=== PATIENT | male | born 1990 | race Caucasian/White ===

== ENCOUNTER 2020-05-14 19:39 | Emergency (ER) | payer SELFPAY ==
[~2020-05-14] VITALS: Ht 175.3 cm; Wt 111.6 kg
[2020-05-14 20:12] VITALS: BP 143/83
== END 2020-05-14 20:45 ==
LOC: ER 19:40
DX: R03.0 Elevated blood-pressure reading, without diagnosis of hypertension (principal); Z88.8 Allergy status to other drugs, medicaments and biological substances

== ENCOUNTER 2020-05-15 15:00 | Inpatient (IN) | payer SELFPAY ==
[~2020-05-15] VITALS: Ht 175.3 cm; Wt 99.9 kg
[2020-05-15 15:59] LABS: Basophils # (auto) 0.1 10 ^3/uL (0-0.2); Basophils % (auto) 0.7 % (0.0-2.0); Eosinophils # (auto) 0.2 10 ^3/uL (0-0.8); Lymphocytes # (auto) 1.2 10 ^3/uL (0.4-5.4); Monocytes # (auto) 1.4 10 ^3/uL (0-1.3); Neutrophils % (auto) 71.3 % (37.0-80.0)
[2020-05-15 16:01] LABS: Eosinophils % (auto) 1.7 % (0.0-7.0); Hematocrit 34.9 % (41.0-53.0); Hemoglobin 10.9 g/dL (13.5-17.5); Lymphocytes % (auto) 12.2 % (10.0-50.0); Mean Corpuscular Hemoglobin 21.7 pg (28.0-32.0); Mean Corpuscular Hgb Conc. 31.3 g/dL (32.0-36.0); Mean Corpuscular Volume 69.4 fL (80.0-100.0); Monocytes % (auto) 14.1 % (0.0-12.0); Neutrophils # (auto) 7.1 10 ^3/uL (1.6-8.6); Nucleated Red Blood Cells % 0.3 %; Platelet Count (auto) 503 10^3/uL (140-450); Red Blood Cells 5.03 10^6/uL (4.5-5.90); Red Cell Distribution Width 16.1 % (11.8-14.3)
[2020-05-15 16:02] LABS: Urine Bacteria NONE SEEN /hpf (None Seen); Urine Blood Negative /uL (Negative); Urine Mucus FEW (None Seen); Urine Specific Gravity 1.009 (1.001-1.035); Urine WBC 2 /hpf (0 - 3)
[2020-05-15 16:17] LABS: Albumin 2.4 g/dL (3.4-5.0); BUN/Creatinine Ratio 4.6; Calcium 8.7 mg/dL (8.5-10.1); Potassium 3.4 mmol/L (3.5-5.1)
[2020-05-15 16:20] LABS: Bilirubin, Total 0.2 mg/dL (0.2-1.0); Total Protein 7.9 g/dL (6.4-8.2)
[2020-05-15] MEDS ORDERED: SODIUM CHLORIDE 0.9% 1,000 ML IVB ONE (17:05)
[2020-05-15] MEDS ORDERED: METOCLOPRAMIDE HCL 5MG/ml INJ 2ml VIAL IV ONE (17:15)
[2020-05-15] MEDS ORDERED: methylPREDNISolone SOD SUCC 125 MG/2 ML VL IV ONE (17:15)
[2020-05-15 17:39] LABS: Magnesium 2.2 mg/dL (1.6-2.6)
[2020-05-15] MEDS ORDERED: SODIUM CHLORIDE 0.9% 1,000 ML IV ONE (21:00)
[2020-05-15] MEDS ORDERED: MORPHINE SULFATE 4 MG/ML SYR/VIAL IV ONE (21:00)
[2020-05-15] MEDS: SODIUM CHLORIDE 0.9% 1,000 ML IV SCH (21:06)
[2020-05-15] MEDS ORDERED: ONDANSETRON HCL 4 MG/2 ML VIAL IV PRN (21:15)
[2020-05-15] MEDS ORDERED: DOCUSATE SOD 100 MG CAP PO PRN (21:15)
[2020-05-15] MEDS ORDERED: MORPHINE SULF INJ 2 MG/ML SYRINGE 1ML IV PRN (21:15)
[2020-05-15] MEDS ORDERED: ACETAMINOPHEN 325 MG TAB PO PRN (21:15)
[2020-05-15] MEDS ORDERED: LORazepam 0.5 MG TAB PO PRN (21:15)
[2020-05-15 22:00] VITALS: BP 104/56
--- NOTE | 2020-05-15 22:00 | NUR ---
MS admit from [facility],[place] admitted to tele/MS. Patient oriented to Deana White RN primary RN, unit, room, bed, and unit policies regarding patient care and visiting hours. Patient weighed by bedscale and encouraged to call if they need something. All questions and concerns addressed, patient verbalized understanding. Bed is in lowest locked position with bed rails up x2 and call light is within reach of the patient.
[2020-05-15 22:10] VITALS: BP 104/56
[2020-05-15] MEDS: metroNIDAZOLE 500MG/100ML 100 ML IV SCH (23:38)
[2020-05-16 05:00] VITALS: BP 123/71
[2020-05-16] MEDS: metroNIDAZOLE 500MG/100ML 100 ML IV SCH ×4 (05:37→23:28)
[2020-05-16] MEDS: SODIUM CHLORIDE 0.9% 1,000 ML IV SCH ×2 (05:48→16:54)
[2020-05-16 06:20] LABS: Basophils # (auto) 0 10 ^3/uL (0-0.2); Eosinophils # (auto) 0 10 ^3/uL (0-0.8); Lymphocytes # (auto) 0.5 10 ^3/uL (0.4-5.4); Lymphocytes % (auto) 8.4 % (10.0-50.0); Monocytes # (auto) 0.1 10 ^3/uL (0-1.3); Neutrophils # (auto) 5.4 10 ^3/uL (1.6-8.6)
[2020-05-16 06:24] LABS: Basophils % (auto) 0.3 % (0.0-2.0); Hematocrit 32.3 % (41.0-53.0); Hemoglobin 10.1 g/dL (13.5-17.5); Mean Corpuscular Hemoglobin 21.7 pg (28.0-32.0); Mean Corpuscular Hgb Conc. 31.2 g/dL (32.0-36.0); Mean Corpuscular Volume 69.6 fL (80.0-100.0); Monocytes % (auto) 2.2 % (0.0-12.0); Neutrophils % (auto) 89.1 % (37.0-80.0); Platelet Count (auto) 449 10^3/uL (140-450); Red Blood Cells 4.63 10^6/uL (4.5-5.90); Red Cell Distribution Width 15.8 % (11.8-14.3)
[2020-05-16 06:41] LABS: Potassium 3.8 mmol/L (3.5-5.1)
[2020-05-16 06:58] LABS: BUN/Creatinine Ratio 7.4; Calcium 8.8 mg/dL (8.5-10.1)
--- NOTE | 2020-05-16 07:52 | NUR ---
Opening Note Assumed pt care from NOC RN. Pt is a/ox4 with no s/s of distress or SOB. Pt is currently laying in bed with no complaints at this time. Discussed POC with pt and pending GI consult. Pt is currently NPO. Safety measures maintained with call light within reach, bed in lowest position and side rails up. Will continue to monitor for changes.
[2020-05-16 08:54] VITALS: BP 105/67
[2020-05-16] MEDS: cefTRIAXone 1GM/50ML D5W 50 ML IV SCH (09:12)
--- NOTE | 2020-05-16 11:11 | NUR ---
Dr Bowman at Bedside MD to see pt. Requests stool sample be collected and sent. Will implement and continue to monitor.
--- NOTE | 2020-05-16 12:09 | NUR ---
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
--- NOTE | 2020-05-16 14:23 | NUR ---
Dr Oviedo at Bedside MD to see pt. Requests that we advance to clear liquid diet and see how pt tolerates. Will implement and continue to monitor.
[2020-05-16 17:00] VITALS: BP 132/78
--- NOTE | 2020-05-16 17:12 | NUR ---
STOOL SENT TO LAB
--- NOTE | 2020-05-16 19:30 | NUR ---
Assumed care of patient, awake and alert oriented x4. pt in no apparent signs of distress at this time. Instructed on POC and to call for assist PRN. Bed is in lowest locked position with bed rails up x2 and call light is within reach of the patient. pt has been oriented to use of call light for assistance. will continue to monitor pt for any changes in condition t/o shift.
[2020-05-16 21:30] VITALS: BP 118/59
[2020-05-16] MEDS: HYDROcodone-ACET 5/325MG TAB PO PRN (23:04)
[2020-05-16] MEDS: methylPREDNISolone SOD SUCC 40 MG/ML VL IV SCH (23:05)
[2020-05-17 05:00] VITALS: BP 118/75
[2020-05-17] MEDS: metroNIDAZOLE 500MG/100ML 100 ML IV SCH ×4 (05:09→22:55)
[2020-05-17] MEDS: SODIUM CHLORIDE 0.9% 1,000 ML IV SCH ×2 (05:10→12:45)
--- NOTE | 2020-05-17 07:30 | NUR ---
Opening Note Assumed pt care from NICHOLAS RN. Pt is a/ox4 with no s/s of distress or SOB. Pt is currently sitting upright in bed with no complaints at this time. Pt states that he has been tolerating his advancement of his diet at clear liquid well. Discussed POC with pt; pt verbalized understanding. Safety measures maintained with call light within reach, bed in lowest position and side rails up. Will continue to monitor for changes.
[2020-05-17 08:54] VITALS: BP 103/57
[2020-05-17] MEDS: cefTRIAXone 1GM/50ML D5W 50 ML IV SCH (09:12)
[2020-05-17] MEDS: methylPREDNISolone SOD SUCC 40 MG/ML VL IV SCH (09:13)
--- NOTE | 2020-05-17 11:12 | NUR ---
Dr Bowman at Bedside MD to see pt. Discussed POC with pt. Plans to d/c pt home tomorrow once c. diff results populate. MD requested that we advance diet. Will implement and continue to monitor.
--- NOTE | 2020-05-17 11:34 | NUR ---
Dr Oviedo at Bedside MD updated on pt's status and POC. MD stated he would input some orders. Will continue to monitor.
[2020-05-17] MEDS: predniSONE 20 MG TAB PO SCH (11:55)
--- NOTE | 2020-05-17 13:22 | NUR ---
Advancement of Diet Pt tolerating the advancement of diet to soft diet. Will continue to monitor.
--- NOTE | 2020-05-17 16:15 | NUR ---
Iv Insertion and Removal 20G to pt's L AC inserted. 3 attempts made. Pt tolerated insertion well. Clean/sterile technique used. 22G to pt's R AC d/c'ed. Catheter was removed fully intact, site is asymptomatic, and pressure was applied to site for 3 minutes with gauze and then wrapped in coban. Pt instructed to keep dressing on for 30 minutes.
[2020-05-17 16:51] VITALS: BP 134/72
--- NOTE | 2020-05-17 19:15 | NUR ---
Opening Note Assumed pt care from day RN. Pt is aaox4 with no s/s of distress or SOB. Pt is currently laying in bed with no complaints at this time. Discussed POC with pt and his change in sterroidal tx. Pt is aware and verbalizes understanding for the reasoning of this change. Safety measures maintained with call light within reach, bed in lowest position and side rails up x2. Will continue to monitor for changes in condition.
[2020-05-17 22:00] VITALS: BP 136/74
[2020-05-17] MEDS: HYDROcodone-ACET 5/325MG TAB PO PRN (22:55)
[2020-05-18] MEDS: SODIUM CHLORIDE 0.9% 1,000 ML IV SCH ×2 (04:47→09:20)
[2020-05-18 04:54] VITALS: BP 106/52
[2020-05-18] MEDS: metroNIDAZOLE 500MG/100ML 100 ML IV SCH (05:22)
[2020-05-18 09:00] VITALS: BP 151/72
[2020-05-18] MEDS: predniSONE 20 MG TAB PO SCH (09:21)
[2020-05-18] MEDS: cefTRIAXone 1GM/50ML D5W 50 ML IV SCH (09:21)
[2020-05-18 13:00] VITALS: BP 132/74
[2020-05-18 14:53] VITALS: BP 136/70
--- NOTE | 2020-05-18 15:25 | NUR ---
Discharge instructions given as ordered. Encourage to follow up with PMD as instructed. All questions and concerns addressed. Patient verbalized understanding. Medication reconciliation form completed and copy given to patient. IV removed with catheter intact, pressure dressing applied. Patient taken to vehicle with all personal belongings, accompanied by staff. No distress noted at time of departure.
== END 2020-05-18 15:30 | disposition home or self-care (01) | DRG 385 ==
LOC: ER 15:00 → OVERFLOW 15:01 → WEST WING 21:49
PROVIDERS: ADMIT Hospitalist; ATTEND Internal Medicine
DX: K51.90 Ulcerative colitis, unspecified, without complications (principal); E43 Unspecified severe protein-calorie malnutrition; D50.9 Iron deficiency anemia, unspecified; E66.9 Obesity, unspecified; E87.6 Hypokalemia; Z59.7 Insufficient social insurance and welfare support; Z79.899 Other long term (current) drug therapy; Z68.32 Body mass index [BMI] 32.0-32.9, adult
CPT/HCPCS: 36415; 74176; 80048; 80053; 80061; 81001; 83605; 83690; 83735; 85025; 87045; 87427; 87493; G0378; J0696; J3490

== ENCOUNTER → 2020-07-20 | Emergency (ER) | payer SELFPAY ==
[~2020-07-20] VITALS: Ht 175.3 cm; Wt 104.3 kg
[~2020-07-20] MED LIST: METOCLOPRAMIDE HCL 5MG/ml INJ 2ml VIAL IV ONE; MORPHINE SULFATE 4 MG/ML SYR/VIAL IV ONE; PANTOPRAZOLE 40 MG/10 ML VIAL INJ IV ONE; SODIUM CHLORIDE 0.9% 1,000 ML IV ONE; SODIUM CHLORIDE 0.9% 1,000 ML IVB ONE; SULFAMETH-TRIMETH 80/16MG-ML 15 ML in D5W 5% 500 ML IV ONE; methylPREDNISolone SOD SUCC 125 MG/2 ML VL IV ONE
[2020-07-20 09:36] LABS: Basophils # (auto) 0 10 ^3/uL (0-0.2); Basophils % (auto) 0.2 % (0.0-2.0); Eosinophils # (auto) 0 10 ^3/uL (0-0.8); Eosinophils % (auto) 0.2 % (0.0-7.0); Hematocrit 35.8 % (41.0-53.0); Hemoglobin 11.5 g/dL (13.5-17.5); Lymphocytes # (auto) 1.7 10 ^3/uL (0.4-5.4); Lymphocytes % (auto) 14.9 % (10.0-50.0); Mean Corpuscular Hemoglobin 22.2 pg (28.0-32.0); Mean Corpuscular Hgb Conc. 32.1 g/dL (32.0-36.0); Mean Corpuscular Volume 69.1 fL (80.0-100.0); Monocytes # (auto) 1.5 10 ^3/uL (0-1.3); Monocytes % (auto) 12.6 % (0.0-12.0); Neutrophils # (auto) 8.4 10 ^3/uL (1.6-8.6); Neutrophils % (auto) 72.1 % (37.0-80.0); Nucleated Red Blood Cells % 0.2 %; Platelet Count (auto) 569 10^3/uL (140-450); Red Blood Cells 5.18 10^6/uL (4.5-5.90); Red Cell Distribution Width 18.6 % (11.8-14.3); White Blood Cell 11.7 10^3/uL (4.4-10.8)
[2020-07-20 09:58] LABS: Calcium 8.9 mg/dL (8.5-10.1)
[2020-07-20 10:05] LABS: Albumin 2.6 g/dL (3.4-5.0); BUN/Creatinine Ratio 7.4; Bilirubin, Total 0.2 mg/dL (0.2-1.0); Total Protein 7.9 g/dL (6.4-8.2)
[2020-07-20 10:08] LABS: Potassium 3.8 mmol/L (3.5-5.1)
[2020-07-20 10:28] LABS: Magnesium 2.2 mg/dL (1.6-2.6)
[2020-07-20 13:28] LABS: Urine Bacteria NONE SEEN /hpf (None Seen); Urine Blood Negative /uL (Negative); Urine Specific Gravity 1.005 (1.001-1.035); Urine WBC 1 /hpf (0 - 3)
[2020-07-20 16:00] VITALS: BP 116/78
== END | disposition home or self-care (01) ==
LOC: ER 08:48
DX: D50.9 Iron deficiency anemia, unspecified (principal); E46 Unspecified protein-calorie malnutrition
CPT/HCPCS: 36415; 80053; 81001; 83690; 83735; 84443; 85025; 96361; 96365; 96375; 99285; C9113; J2270; J2765; J2930; J3490; J7030; J7060